=== PATIENT | female | born 2000 | race Caucasian/White ===

== ENCOUNTER 2018-03-14 11:20 | Emergency (ER) | payer OTHER | END 2018-03-14 12:18 | disposition home or self-care (01) | LOC: FTE 11:20 | DX: S09.21XA Traumatic rupture of right ear drum, initial encounter (principal); J45.909 Unspecified asthma, uncomplicated; S09.90XA Unspecified injury of head, initial encounter; V94.0XXA Hitting object or bottom of body of water due to fall from watercraft, initial encounter; Y92.9 Unspecified place or not applicable | CPT/HCPCS: 99283; Z7502 ==